=== PATIENT | male | born 1970 | race Hispanic/Latino ===

== ENCOUNTER 2020-07-30 03:57 | Emergency (ER) | payer MEDICAID, OTHER ==
[~2020-07-30] VITALS: Ht 177.8 cm; Wt 81.4 kg
[2020-07-30 06:34] LABS: BLOOD UREA NITROGEN 21 MG/DL (7-18); CALCIUM LEVEL 8.9 MG/DL (8.5-10.1); CARBON DIOXIDE LEVEL 30 MEQ/L (21-32); CHLORIDE LEVEL 104 MEQ/L (98-107); CREATININE FOR GFR 0.83 MG/DL (0.70-1.30); GLOMERULAR FILTRATION RATE > 60.0 (>56); GLUCOSE, FASTING 104 MG/DL (70-100); POTASSIUM SERUM 4.3 MEQ/L (3.5-5.1); SODIUM LEVEL 138 MEQ/L (136-145)
[2020-07-30] MEDS ORDERED: BACT800T5 PO (06:44)
[2020-07-30] MEDS ORDERED: BACTRIM 160MG/800MG DS TAB PO ONE (06:45)
[2020-07-30 07:07] VITALS: BP 132/82
== END 2020-07-30 07:08 | disposition home or self-care (01) ==
LOC: M ED 03:57
DX: L03.115 Cellulitis of right lower limb (principal); L02.415 Cutaneous abscess of right lower limb; F17.200 Nicotine dependence, unspecified, uncomplicated; F19.10 Other psychoactive substance abuse, uncomplicated

== ENCOUNTER 2020-11-28 13:59 | Emergency (ER) | payer MEDICAID ==
[~2020-11-28] VITALS: Ht 177.8 cm; Wt 80.3 kg
[~2020-11-28 13:59] MED LIST: BACT800T5 PO
[2020-11-28] MEDS ORDERED: BACT800T5 PO (14:55)
[2020-11-28] MEDS ORDERED: BACTRIM 160MG/800MG DS TAB PO ONE (15:25)
[2020-11-28 16:01] VITALS: BP 140/83
== END 2020-11-28 15:55 | disposition home or self-care (01) ==
LOC: M ED 13:59
DX: L03.113 Cellulitis of right upper limb (principal); Z86.14 Personal history of Methicillin resistant Staphylococcus aureus infection; F17.200 Nicotine dependence, unspecified, uncomplicated

== ENCOUNTER 2021-03-03 21:02 | Emergency (ER) | payer MEDICAID ==
[~2021-03-03] VITALS: Ht 177.8 cm; Wt 75.7 kg
[2021-03-03 21:52] LABS: BASO % 0.3 % (0.0-1.0); EOS % 0.2 % (0.0-3.0); HEMATOCRIT 45.1 % (42.0-52.0); LYMPH # 2.2 10^3/uL (1.5-5.0); LYMPH % 21.4 % (24.0-44.0); MEAN CORPUSCULAR HGB CONC 35.5 g/dl (32.0-36.5); MEAN CORPUSCULAR VOLUME 84.6 fl (80.0-96.0); MONO # 0.7 10^3/uL (0.0-0.8); MONO % 6.7 % (2.0-8.0); NEUTROPHILS # 7.2 10^3/uL (1.5-8.5); NEUTROPHILS % 71.2 % (36.0-66.0); PLATELET COUNT, AUTOMATED 324 10^3/uL (150-450); RED BLOOD COUNT 5.33 10^6/uL (4.30-6.10); WHITE BLOOD COUNT 10.1 10^3/uL (4.0-10.0)
[2021-03-03 22:16] LABS: AMPHETAMINES LEVEL URINE POSITIVE (NEGATIVE); BARBITURATES URINE NEGATIVE (NEGATIVE); BENZODIAZEPINES URINE NEGATIVE (NEGATIVE); CANNABINOIDS URINE NEGATIVE (NEGATIVE); COCAINE METABOLITE URINE NEGATIVE (NEGATIVE); METHADONE URINE NEGATIVE (NEGATIVE); OPIATES URINE NEGATIVE (NEGATIVE); PHENCYCLIDINE URINE NEGATIVE (NEGATIVE)
[2021-03-03 22:20] LABS: ALBUMIN 3.7 GM/DL (3.2-5.2); ALT/SGPT 41 U/L (12-78); BILIRUBIN,DIRECT 0.2 MG/DL (0.0-0.2); BILIRUBIN,TOTAL 0.7 MG/DL (0.2-1.0); BLOOD UREA NITROGEN 23 MG/DL (7-18); CALCIUM LEVEL 9.2 MG/DL (8.5-10.1); CARBON DIOXIDE LEVEL 23 MEQ/L (21-32); CHLORIDE LEVEL 105 MEQ/L (98-107); CREATININE FOR GFR 0.76 MG/DL (0.70-1.30); GLOMERULAR FILTRATION RATE > 60.0 (>56); GLUCOSE, FASTING 101 MG/DL (70-100); MAGNESIUM LEVEL 1.9 MG/DL (1.8-2.4); POTASSIUM SERUM 4.2 MEQ/L (3.5-5.1); SODIUM LEVEL 137 MEQ/L (136-145); TOTAL PROTEIN 7.1 GM/DL (6.4-8.2)
--- NOTE | 2021-03-03 22:22 | REPVR ---
PROCEDURE INFORMATION: Exam: XR Chest Exam date and time: 03/03/2021 9:17 PM Age: 51 years old Clinical indication: Other: Status epilepticus TECHNIQUE: Imaging protocol: XR of the chest. Views: 1 view. COMPARISON: No relevant prior studies available. FINDINGS: Lungs: Unremarkable. No consolidation. Pleural spaces: Unremarkable. No pleural effusion. No pneumothorax. Heart/Mediastinum: Unremarkable. No cardiomegaly. Bones/joints: Unremarkable. IMPRESSION: Negative chest. Electronically signed by: Tim Vieyra On 03/03/2021 22:22:13 PM
--- NOTE | 2021-03-03 22:22 | REPVR ---
PROCEDURE INFORMATION: Exam: CT Head Without Contrast Exam date and time: 03/03/2021 9:27 PM Age: 51 years old Clinical indication: Other: Status epilepticus TECHNIQUE: Imaging protocol: Computed tomography of the head without contrast. Radiation optimization: All CT scans at this facility use at least one of these dose optimization techniques: automated exposure control; mA and/or kV adjustment per patient size (includes targeted exams where dose is matched to clinical indication); or iterative reconstruction. COMPARISON: CT Neck with contrast 12/19/2014 5:38 PM FINDINGS: Brain: Normal. No hemorrhage. Unremarkable white matter. No mass effect. Cerebral ventricles: No ventriculomegaly. Paranasal sinuses: Visualized sinuses are unremarkable. No fluid levels. Mastoid air cells: Visualized mastoid air cells are well aerated. Bones/joints: Motion artifact at the skull base. Soft tissues: Unremarkable. IMPRESSION: Negative noncontrast head CT. Electronically signed by: Tim Vieyra On 03/03/2021 22:21:40 PM
[2021-03-03] MEDS ORDERED: D5W IV ONE (22:55)
[2021-03-03] MEDS ORDERED: VALPROATE SOD IV ONE (22:55)
[2021-03-03] MEDS ORDERED: KETOROLAC 30 MG/ML 1ML VIAL IV ONE (22:55)
--- NOTE | 2021-03-04 00:10 | REPVR ---
PROCEDURE INFORMATION: Exam: CT Lumbar Spine Without Contrast Exam date and time: 03/03/2021 11:54 PM Age: 51 years old Clinical indication: Low back pain; Additional info: Low back pain S/P seizure TECHNIQUE: Imaging protocol: Computed tomography images of the lumbar spine without contrast. Radiation optimization: All CT scans at this facility use at least one of these dose optimization techniques: automated exposure control; mA and/or kV adjustment per patient size (includes targeted exams where dose is matched to clinical indication); or iterative reconstruction. COMPARISON: No relevant prior studies available. FINDINGS: Vertebrae: Minimal levoscoliosis centered at L4. No acute compression or fracture. L1-L2: Slight interspace narrowing with early degenerative change of the facets with no spinal or foraminal stenosis. L2-L3: Minimal diffuse bulge of the disc with preservation of posterior concavity and no significant facet arthropathy. No spinal or foraminal stenosis. L3-L4: Mild interspace narrowing with endplate sclerosis and irregularity on the right. There is minimal diffuse bulge with loss of posterior concavity. There is minimal facet arthropathy, particularly on the right with borderline right neural foraminal stenosis. L4-L5: Mild interspace narrowing with minimal diffuse bulge and right posterolateral osteophytes and minimal facet arthropathy, right greater than left. There is no spinal stenosis. There is borderline right neural foraminal stenosis. L5-S1: The disc is within normal limits with minimal degenerative changes of facets with no spinal or foraminal stenosis. Kidneys and ureters: Absent left kidney. Soft tissues: Unremarkable. IMPRESSION: 1. Minimal levoscoliosis. 2. Degenerative disc changes, greatest on the right at L3-L4 and L4-L5 with borderline right neural foraminal stenosis at these 2 levels. 3. Absent left kidney. 4. Otherwise negative CT lumbar spine. No acute fracture or subluxation. Electronically signed by: Tim Vieyra On 03/04/2021 00:09:19 AM
[2021-03-04] MEDS ORDERED: DEPA1TAB3 PO (01:45)
[2021-03-04 02:32] VITALS: BP 172/88
== END 2021-03-04 02:34 | disposition home or self-care (01) ==
LOC: M ED 21:02
DX: R56.9 Unspecified convulsions (principal); F43.10 Post-traumatic stress disorder, unspecified; F31.9 Bipolar disorder, unspecified; F17.200 Nicotine dependence, unspecified, uncomplicated; M51.36 Other intervertebral disc degeneration, lumbar region; Z90.5 Acquired absence of kidney
CPT/HCPCS: 70450; 71045; 72131; 80048; 80076; 80307; 81001; 83735; 84100; 85025; 94760; 96365; 96375; 99284; J1885

== ENCOUNTER 2022-02-17 18:15 | Emergency (ER) | payer MEDICAID ==
[~2022-02-17] VITALS: Ht 177.8 cm; Wt 95.5 kg
[~2022-02-17 18:15] MED LIST changes: +DEPA1TAB3 PO
[2022-02-17] MEDS ORDERED: NS 1,000 ML IV ONE (18:25)
[2022-02-17 18:56] LABS: BASO % 0.2 % (0.0-1.0); EOS # 0.1 10^3/uL (0.0-0.5); EOS % 0.6 % (0.0-3.0); HEMATOCRIT 40.2 % (42.0-52.0); HEMOGLOBIN 13.2 g/dl (13.5-17.5); LYMPH # 0.7 10^3/uL (1.5-5.0); LYMPH % 5.7 % (24.0-44.0); MEAN CORPUSCULAR HEMOGLOBIN 30.6 pg (27.0-33.0); MEAN CORPUSCULAR HGB CONC 32.8 g/dl (32.0-36.5); MEAN CORPUSCULAR VOLUME 93.1 fl (80.0-96.0); MONO # 0.6 10^3/uL (0.0-0.8); MONO % 4.4 % (2.0-8.0); NEUTROPHILS # 11.1 10^3/uL (1.5-8.5); NEUTROPHILS % 88.6 % (36.0-66.0); PLATELET COUNT, AUTOMATED 284 10^3/uL (150-450); RED BLOOD COUNT 4.32 10^6/uL (4.30-6.10); WHITE BLOOD COUNT 12.5 10^3/uL (4.0-10.0)
[2022-02-17 19:24] LABS: ACETAMINOPHEN LEVEL < 2.0 UG/ML (10.0-30.0); ALBUMIN 3.9 GM/DL (3.2-5.2); ALT/SGPT 34 U/L (12-78); BILIRUBIN,DIRECT 0.2 MG/DL (0.0-0.2); BILIRUBIN,TOTAL 0.8 MG/DL (0.2-1.0); BLOOD UREA NITROGEN 20 MG/DL (7-18); CALCIUM LEVEL 8.8 MG/DL (8.5-10.1); CARBON DIOXIDE LEVEL 28 MEQ/L (21-32); CHLORIDE LEVEL 104 MEQ/L (98-107); CREATININE FOR GFR 1.17 MG/DL (0.70-1.30); ETHYL ALCOHOL (ETHANOL) < 0.003 % (0.000-0.010); GLOMERULAR FILTRATION RATE > 60.0 (>56); GLUCOSE, FASTING 147 MG/DL (70-100); POTASSIUM SERUM 4.3 MEQ/L (3.5-5.1); SALICYLATE LEVEL 2.4 MG/DL (5.0-30.0); SODIUM LEVEL 137 MEQ/L (136-145); TOTAL PROTEIN 6.8 GM/DL (6.4-8.2)
[2022-02-17 20:38] LABS: AMPHETAMINES LEVEL URINE NEGATIVE (NEGATIVE); BARBITURATES URINE NEGATIVE (NEGATIVE); BENZODIAZEPINES URINE NEGATIVE (NEGATIVE); CANNABINOIDS URINE POSITIVE (NEGATIVE); COCAINE METABOLITE URINE POSITIVE (NEGATIVE); METHADONE URINE NEGATIVE (NEGATIVE); OPIATES URINE POSITIVE (NEGATIVE); PHENCYCLIDINE URINE NEGATIVE (NEGATIVE)
[2022-02-17 21:29] VITALS: BP 138/75
== END 2022-02-17 21:45 | disposition home or self-care (01) ==
LOC: M ED 18:15 → EDBD 18:15 → M ED 21:45
DX: T40.1X1A Poisoning by heroin, accidental (unintentional), initial encounter (principal); R00.0 Tachycardia, unspecified; I45.10 Unspecified right bundle-branch block; F17.200 Nicotine dependence, unspecified, uncomplicated; J01.00 Acute maxillary sinusitis, unspecified; J01.20 Acute ethmoidal sinusitis, unspecified; Z79.899 Other long term (current) drug therapy

== ENCOUNTER 2022-04-06 10:53 | Emergency (ER) | payer MEDICAID, OTHER ==
[~2022-04-06] VITALS: Ht 177.8 cm; Wt 77.3 kg
[2022-04-06] MEDS ORDERED: ACETAMINOPHEN 325 MG TAB PO ONE (11:30)
[2022-04-06] MEDS ORDERED: BACITRACIN OINTMENT 30GM TUBE TOP STA (12:22)
[2022-04-06 13:12] VITALS: BP 162/91
== END 2022-04-06 13:20 | disposition home or self-care (01) ==
LOC: M ED 10:53
DX: S43.51XA Sprain of right acromioclavicular joint, initial encounter (principal); S50.811A Abrasion of right forearm, initial encounter; W19.XXXA Unspecified fall, initial encounter; F43.10 Post-traumatic stress disorder, unspecified; F31.9 Bipolar disorder, unspecified; Z79.899 Other long term (current) drug therapy

== ENCOUNTER → 2022-04-18 | Outpatient (CLI) | payer OTHER | LOC: M SOG 14:06 | PROVIDERS: ATTEND Orthopaedic Surgery | DX: M54.2 Cervicalgia (principal); M25.511 Pain in right shoulder; M47.812 Spondylosis without myelopathy or radiculopathy, cervical region; M19.011 Primary osteoarthritis, right shoulder ==

== ENCOUNTER 2023-02-06 03:20 | Emergency (ER) | payer OTHER ==
[~2023-02-06] VITALS: Ht 177.8 cm; Wt 73.9 kg
[2023-02-06 03:21] VITALS: BP 165/92; TEMP 96.8; O2SAT 98
== END 2023-02-06 05:42 | disposition left against medical advice (07) ==
LOC: M ED 03:20
DX: Z53.21 Procedure and treatment not carried out due to patient leaving prior to being seen by health care provider (principal)

== ENCOUNTER 2023-02-18 22:04 | Inpatient (IN) | payer OTHER ==
[~2023-02-18] VITALS: Ht 177.8 cm; Wt 60.9 kg
[2023-02-18 23:02] LABS: BASO # 0.1 10^3/uL (0.0-0.2); BASO % 0.3 % (0.0-1.0); EOS % 0.1 % (0.0-3.0); HEMATOCRIT 35.3 % (42.0-52.0); LYMPH # 0.8 10^3/uL (1.5-5.0); LYMPH % 5.3 % (24.0-44.0); MEAN CORPUSCULAR HEMOGLOBIN 30.9 pg (27.0-33.0); MONO # 1.2 10^3/uL (0.0-0.8); MONO % 7.9 % (2.0-8.0); NEUTROPHILS # 12.6 10^3/uL (1.5-8.5); NEUTROPHILS % 85.7 % (36.0-66.0); PLATELET COUNT, AUTOMATED 274 10^3/uL (150-450); RED BLOOD COUNT 3.88 10^6/uL (4.30-6.10); WHITE BLOOD COUNT 14.6 10^3/uL (4.0-10.0)
[2023-02-18 23:20] LABS: BLOOD UREA NITROGEN 21 MG/DL (9-23); CARBON DIOXIDE LEVEL 28 MMOL/L (20-31); CHLORIDE LEVEL 98 MMOL/L (98-107); CREATININE FOR GFR 0.82 MG/DL (0.70-1.30); GLOMERULAR FILTRATION RATE > 60.0 (>56); GLUCOSE, FASTING 106 MG/DL (60-100); POTASSIUM SERUM 3.8 MMOL/L (3.5-5.1); SODIUM LEVEL 133 MMOL/L (136-145)
[2023-02-18 23:23] LABS: ERYTHROCYTE SEDIMENTATION RATE 80 mm/hr (0-20)
[2023-02-19] MEDS ORDERED: PIPERACILLIN/TAZOBACTAM SOD 4.5 GM in D5W MINI-BAG PLUS 50 ML IV ONE (00:15)
[2023-02-19] MEDS ORDERED: NS 1,000 ML IV ONE (00:15)
[2023-02-19] MEDS ORDERED: ACETAMINOPHEN TAB 650MG DOSE (2X325MG) PO ONE (00:15)
[2023-02-19 01:22] LABS: AMPHETAMINES LEVEL URINE NEGATIVE (NEGATIVE); BARBITURATES URINE NEGATIVE (NEGATIVE); COCAINE METABOLITE URINE NEGATIVE (NEGATIVE)
[2023-02-19 01:23] LABS: BENZODIAZEPINES URINE NEGATIVE (NEGATIVE); CANNABINOIDS URINE NEGATIVE (NEGATIVE); METHADONE URINE NEGATIVE (NEGATIVE); OPIATES URINE NEGATIVE (NEGATIVE); PHENCYCLIDINE URINE NEGATIVE (NEGATIVE)
[2023-02-19] MEDS ORDERED: NS 1,000 ML IV SCH (05:10)
[2023-02-19] MEDS ORDERED: ACETAMINOPHEN TAB 650MG DOSE (2X325MG) PO PRN (05:10)
[2023-02-19] MEDS ORDERED: ONDANSETRON 4MG 2ML VIAL IV PRN (05:10)
[2023-02-19] MEDS ORDERED: HOME MED LIST COMPLETE! XX SCH (05:50)
[2023-02-19] MEDS ORDERED: NICOTINE 14 MG/24 HR TRANSDERMAL TD PRN (06:00)
[2023-02-19] MEDS: KETOROLAC 30 MG/ML 1ML VIAL IV PRN ×2 (06:16→22:12)
[2023-02-19] MEDS: VANCOMYCIN HCL 1,000 MG, VIAL MATE ADAPTER 1 EACH in D5W 250 ML IV SCH ×3 (06:18→22:12)
[2023-02-19] MEDS ORDERED: ACETAMINOPHEN 500 MG TAB PO PRN (07:00)
[2023-02-19] MEDS ORDERED: VANCOMYCIN HCL 500 MG in D5W MINI-BAG PLUS 100 ML IV ONE (07:00)
[2023-02-19] MEDS ORDERED: KETOROLAC 30 MG/ML 1ML VIAL IV PRN (07:00)
[2023-02-19 07:01] LABS: BLOOD UREA NITROGEN 16 MG/DL (9-23); CALCIUM LEVEL 8.6 MG/DL (8.5-10.1); CARBON DIOXIDE LEVEL 24 MMOL/L (20-31); CHLORIDE LEVEL 104 MMOL/L (98-107); GLOMERULAR FILTRATION RATE > 60.0 (>56); GLUCOSE, FASTING 112 MG/DL (60-100); POTASSIUM SERUM 3.8 MMOL/L (3.5-5.1); SODIUM LEVEL 137 MMOL/L (136-145)
[2023-02-19 07:04] LABS: BASO % 0.3 % (0.0-1.0); EOS % 0.2 % (0.0-3.0); HEMATOCRIT 36.1 % (42.0-52.0); HEMOGLOBIN 12.1 g/dl (13.5-17.5); LYMPH # 0.8 10^3/uL (1.5-5.0); MEAN CORPUSCULAR HEMOGLOBIN 30.3 pg (27.0-33.0); MEAN CORPUSCULAR HGB CONC 33.5 g/dl (32.0-36.5); MEAN CORPUSCULAR VOLUME 90.3 fl (80.0-96.0); MONO # 1.2 10^3/uL (0.0-0.8); MONO % 8.1 % (2.0-8.0); NEUTROPHILS # 12.9 10^3/uL (1.5-8.5); NEUTROPHILS % 85.5 % (36.0-66.0); PLATELET COUNT, AUTOMATED 286 10^3/uL (150-450); WHITE BLOOD COUNT 15.1 10^3/uL (4.0-10.0)
[2023-02-19] MEDS ORDERED: ENOXAPARIN 40MG/0.4ML SYRINGE (J1650 PER 10MG) SC SCH (09:00)
[2023-02-19 11:45] VITALS: BP 104/69; TEMP 97; O2SAT 92
[2023-02-19 12:11] VITALS: BP 150/72
[2023-02-19] MEDS: METHADONE 10MG TAB PO SCH (12:51)
[2023-02-19] MEDS: carisoprodoL 350 MG TAB PO PRN ×2 (12:52→12:54)
[2023-02-19] MEDS: cloNIDine 0.1MG TABLET PO SCH (12:52)
[2023-02-19 14:00] VITALS: BP 138/70; TEMP 97.5; O2SAT 96
[2023-02-19] MEDS ORDERED: cloNIDine 0.1MG TABLET PO ONE (15:00)
[2023-02-19] MEDS: RIVAROXABAN 10MG TAB (XARELTO) PO SCH (20:04)
[2023-02-19 21:39] VITALS: BP 130/83; TEMP 97.5; O2SAT 100
[2023-02-20 05:23] LABS: BASO % 0.2 % (0.0-1.0); EOS % 0.2 % (0.0-3.0); HEMATOCRIT 35.9 % (42.0-52.0); LYMPH # 0.8 10^3/uL (1.5-5.0); LYMPH % 6.1 % (24.0-44.0); MEAN CORPUSCULAR HEMOGLOBIN 30.2 pg (27.0-33.0); MEAN CORPUSCULAR HGB CONC 33.4 g/dl (32.0-36.5); MEAN CORPUSCULAR VOLUME 90.4 fl (80.0-96.0); MONO # 0.6 10^3/uL (0.0-0.8); MONO % 4.9 % (2.0-8.0); NEUTROPHILS # 11.4 10^3/uL (1.5-8.5); NEUTROPHILS % 87.9 % (36.0-66.0); PLATELET COUNT, AUTOMATED 329 10^3/uL (150-450); RED BLOOD COUNT 3.97 10^6/uL (4.30-6.10)
[2023-02-20 05:48] LABS: BLOOD UREA NITROGEN 14 MG/DL (9-23); CALCIUM LEVEL 7.8 MG/DL (8.5-10.1); CARBON DIOXIDE LEVEL 29 MMOL/L (20-31); CHLORIDE LEVEL 104 MMOL/L (98-107); CREATININE FOR GFR 0.65 MG/DL (0.70-1.30); GLOMERULAR FILTRATION RATE > 60.0 (>56); GLUCOSE, FASTING 113 MG/DL (60-100); POTASSIUM SERUM 3.9 MMOL/L (3.5-5.1); SODIUM LEVEL 138 MMOL/L (136-145)
[2023-02-20 06:00] VITALS: BP 141/85; TEMP 97.8; O2SAT 98
[2023-02-20] MEDS: VANCOMYCIN HCL 1,000 MG, VIAL MATE ADAPTER 1 EACH in D5W 250 ML IV SCH ×3 (06:23→21:21)
[2023-02-20] MEDS: KETOROLAC 30 MG/ML 1ML VIAL IV PRN ×2 (06:23→19:55)
[2023-02-20] MEDS: VANCOMYCIN HCL 500 MG in D5W MINI-BAG PLUS 100 ML IV SCH ×3 (08:16→22:33)
[2023-02-20] MEDS: METHADONE 10MG TAB PO SCH (08:16)
[2023-02-20] MEDS: cloNIDine 0.1MG TABLET PO SCH (08:17)
[2023-02-20] MEDS ORDERED: METHADONE 10MG TAB PO ONE (11:00)
[2023-02-20] MEDS ORDERED: cloNIDine 0.2 MG TAB PO ONE (11:00)
[2023-02-20 14:08] LABS: VANCOMYCIN LEVEL TROUGH 14.9 UG/ML (10.0-20.0)
[2023-02-20 16:13] VITALS: BP 118/72
[2023-02-20 16:37] LABS: ALBUMIN 2.3 G/DL (3.2-5.2); BILIRUBIN,DIRECT 0.2 MG/DL (<0.4); BILIRUBIN,TOTAL 0.4 MG/DL (0.3-1.2); TOTAL PROTEIN 5.3 G/DL (5.7-8.2)
[2023-02-20] MEDS: RIVAROXABAN 10MG TAB (XARELTO) PO SCH (17:32)
[2023-02-20 21:00] VITALS: BP 115/73; TEMP 97.3; O2SAT 98
[2023-02-20] MEDS: carisoprodoL 350 MG TAB PO PRN (21:17)
[2023-02-21 05:25] LABS: BASO % 0.4 % (0.0-1.0); EOS # 0.1 10^3/uL (0.0-0.5); EOS % 0.6 % (0.0-3.0); HEMATOCRIT 36.9 % (42.0-52.0); HEMOGLOBIN 12.4 g/dl (13.5-17.5); LYMPH # 1.1 10^3/uL (1.5-5.0); MEAN CORPUSCULAR HEMOGLOBIN 30.5 pg (27.0-33.0); MEAN CORPUSCULAR HGB CONC 33.6 g/dl (32.0-36.5); MEAN CORPUSCULAR VOLUME 90.9 fl (80.0-96.0); MONO # 0.6 10^3/uL (0.0-0.8); MONO % 5.1 % (2.0-8.0); NEUTROPHILS % 83.1 % (36.0-66.0); PLATELET COUNT, AUTOMATED 394 10^3/uL (150-450); RED BLOOD COUNT 4.06 10^6/uL (4.30-6.10); WHITE BLOOD COUNT 10.9 10^3/uL (4.0-10.0)
[2023-02-21] MEDS: KETOROLAC 30 MG/ML 1ML VIAL IV PRN (05:31)
[2023-02-21] MEDS: VANCOMYCIN HCL 1,000 MG, VIAL MATE ADAPTER 1 EACH in D5W 250 ML IV SCH (05:31)
[2023-02-21 05:35] VITALS: BP 116/74; TEMP 97.5; O2SAT 100
[2023-02-21 05:40] LABS: ERYTHROCYTE SEDIMENTATION RATE 57 mm/hr (0-20)
[2023-02-21 05:51] LABS: BLOOD UREA NITROGEN 17 MG/DL (9-23); CALCIUM LEVEL 8.2 MG/DL (8.5-10.1); CARBON DIOXIDE LEVEL 28 MMOL/L (20-31); CHLORIDE LEVEL 105 MMOL/L (98-107); GLOMERULAR FILTRATION RATE > 60.0 (>56); GLUCOSE, FASTING 121 MG/DL (60-100); POTASSIUM SERUM 4.1 MMOL/L (3.5-5.1); SODIUM LEVEL 138 MMOL/L (136-145)
[2023-02-21] MEDS: VANCOMYCIN HCL 500 MG in D5W MINI-BAG PLUS 100 ML IV SCH (06:45)
[2023-02-21] MEDS: METHADONE 10MG TAB PO SCH (08:32)
[2023-02-21 08:34] VITALS: BP 154/89
[2023-02-21] MEDS: cloNIDine 0.1MG TABLET PO SCH (08:34)
[2023-02-21] MEDS ORDERED: SENNA 8.6 MG TAB (SENOKOT) PO PRN (09:20)
[2023-02-21] MEDS ORDERED: MIRALAX *UNIT DOSE* 17GM PACKET PO PRN (09:20)
[2023-02-21] MEDS ORDERED: MOM 30ML SUSPENSION UDC PO PRN (09:20)
[2023-02-21] MEDS: METAMUCIL (PSYLLIUM) PACKET PO SCH ×2 (11:12→20:49)
[2023-02-21] MEDS: MIRALAX *UNIT DOSE* 17GM PACKET PO SCH (11:40)
[2023-02-21 14:00] VITALS: BP 101/59; TEMP 97.7; O2SAT 98
[2023-02-21] MEDS ORDERED: VANCOMYCIN HCL 750 MG, VIAL MATE ADAPTER 1 EACH in D5W 250 ML IV SCH (14:00)
[2023-02-21] MEDS: ceFAZolin SOD 1 GM in D5W MINI-BAG PLUS 50 ML IV SCH ×2 (14:58→21:03)
[2023-02-21] MEDS ORDERED: VANCOMYCIN HCL 500 MG in D5W MINI-BAG PLUS 100 ML IV SCH (15:00)
[2023-02-21] MEDS: RIVAROXABAN 10MG TAB (XARELTO) PO SCH (18:10)
[2023-02-21 20:00] VITALS: BP 104/57; TEMP 97.9; O2SAT 97
[2023-02-21] MEDS: IPRATROPIUM 0.5MG/ALBUTEROL 2.5MG INH SOL UD 3ML (DUONEB) NEB SCH (20:00)
[2023-02-22] MEDS: IPRATROPIUM 0.5MG/ALBUTEROL 2.5MG INH SOL UD 3ML (DUONEB) NEB SCH ×4 (01:29→19:43)
[2023-02-22] MEDS: ceFAZolin SOD 1 GM in D5W MINI-BAG PLUS 50 ML IV SCH ×3 (05:40→21:28)
[2023-02-22 06:00] VITALS: BP 141/82; TEMP 97.7; O2SAT 98
[2023-02-22 06:32] LABS: BASO # 0.1 10^3/uL (0.0-0.2); BASO % 0.7 % (0.0-1.0); EOS # 0.1 10^3/uL (0.0-0.5); EOS % 1.3 % (0.0-3.0); HEMATOCRIT 38.2 % (42.0-52.0); HEMOGLOBIN 12.4 g/dl (13.5-17.5); LYMPH # 1.6 10^3/uL (1.5-5.0); LYMPH % 17.1 % (24.0-44.0); MEAN CORPUSCULAR HEMOGLOBIN 30.2 pg (27.0-33.0); MEAN CORPUSCULAR HGB CONC 32.5 g/dl (32.0-36.5); MEAN CORPUSCULAR VOLUME 93.2 fl (80.0-96.0); MONO # 0.5 10^3/uL (0.0-0.8); MONO % 5.5 % (2.0-8.0); NEUTROPHILS # 6.9 10^3/uL (1.5-8.5); NEUTROPHILS % 73.9 % (36.0-66.0); PLATELET COUNT, AUTOMATED 439 10^3/uL (150-450); WHITE BLOOD COUNT 9.4 10^3/uL (4.0-10.0)
[2023-02-22 06:58] LABS: ERYTHROCYTE SEDIMENTATION RATE 55 mm/hr (0-20)
[2023-02-22 07:19] LABS: BLOOD UREA NITROGEN 16 MG/DL (9-23); CALCIUM LEVEL 8.1 MG/DL (8.5-10.1); CARBON DIOXIDE LEVEL 26 MMOL/L (20-31); CHLORIDE LEVEL 103 MMOL/L (98-107); CREATININE FOR GFR 0.78 MG/DL (0.70-1.30); GLOMERULAR FILTRATION RATE > 60.0 (>56); GLUCOSE, FASTING 89 MG/DL (60-100); POTASSIUM SERUM 5.2 MMOL/L (3.5-5.1); SODIUM LEVEL 138 MMOL/L (136-145)
[2023-02-22] MEDS ORDERED: LACTULOSE 20GM/30ML SYRUP UDC PO SCH (09:00)
[2023-02-22] MEDS ORDERED: GABAPENTIN 300 MG CAP PO SCH (09:00)
[2023-02-22 09:36] VITALS: BP 139/74
[2023-02-22] MEDS: METAMUCIL (PSYLLIUM) PACKET PO SCH ×2 (09:37→21:00)
[2023-02-22] MEDS: METHADONE 10MG TAB PO SCH (09:37)
[2023-02-22] MEDS: cloNIDine 0.1MG TABLET PO SCH (09:37)
[2023-02-22] MEDS: MIRALAX *UNIT DOSE* 17GM PACKET PO SCH (09:38)
[2023-02-22] MEDS: predniSONE 20 MG TAB PO SCH (12:10)
[2023-02-22 14:00] VITALS: BP 100/54; TEMP 97.7; O2SAT 97
[2023-02-22] MEDS: RIVAROXABAN 10MG TAB (XARELTO) PO SCH (18:57)
[2023-02-22] MEDS: ADVAIR HFA 115/21MCG INHALER INH SCH (19:43)
[2023-02-22 20:51] VITALS: BP 113/55; TEMP 97.7; O2SAT 95
[2023-02-23] MEDS: IPRATROPIUM 0.5MG/ALBUTEROL 2.5MG INH SOL UD 3ML (DUONEB) NEB SCH ×2 (02:10→08:01)
[2023-02-23] MEDS: ceFAZolin SOD 1 GM in D5W MINI-BAG PLUS 50 ML IV SCH (05:15)
[2023-02-23 06:00] VITALS: BP 128/74; TEMP 97.9; O2SAT 99
[2023-02-23 07:10] LABS: BASO # 0.1 10^3/uL (0.0-0.2); BASO % 0.4 % (0.0-1.0); EOS % 0.2 % (0.0-3.0); HEMATOCRIT 38.5 % (42.0-52.0); HEMOGLOBIN 12.5 g/dl (13.5-17.5); LYMPH # 1.8 10^3/uL (1.5-5.0); LYMPH % 14.5 % (24.0-44.0); MEAN CORPUSCULAR HEMOGLOBIN 30.5 pg (27.0-33.0); MEAN CORPUSCULAR HGB CONC 32.5 g/dl (32.0-36.5); MEAN CORPUSCULAR VOLUME 93.9 fl (80.0-96.0); MONO # 0.5 10^3/uL (0.0-0.8); MONO % 4.1 % (2.0-8.0); NEUTROPHILS # 9.8 10^3/uL (1.5-8.5); NEUTROPHILS % 79.3 % (36.0-66.0); PLATELET COUNT, AUTOMATED 475 10^3/uL (150-450); WHITE BLOOD COUNT 12.3 10^3/uL (4.0-10.0)
[2023-02-23 07:26] LABS: BLOOD UREA NITROGEN 17 MG/DL (9-23); CALCIUM LEVEL 8.3 MG/DL (8.5-10.1); CARBON DIOXIDE LEVEL 26 MMOL/L (20-31); CHLORIDE LEVEL 105 MMOL/L (98-107); CREATININE FOR GFR 0.73 MG/DL (0.70-1.30); GLOMERULAR FILTRATION RATE > 60.0 (>56); GLUCOSE, FASTING 113 MG/DL (60-100); POTASSIUM SERUM 4.2 MMOL/L (3.5-5.1); SODIUM LEVEL 141 MMOL/L (136-145)
[2023-02-23 07:28] LABS: ERYTHROCYTE SEDIMENTATION RATE 45 mm/hr (0-20)
[2023-02-23] MEDS: ADVAIR HFA 115/21MCG INHALER INH SCH (08:01)
[2023-02-23] MEDS ORDERED: IPRA0.00 NEB (08:28)
[2023-02-23] MEDS ORDERED: DALV1SOL IV (08:28)
[2023-02-23] MEDS ORDERED: SENN-188 PO (08:28)
[2023-02-23] MEDS ORDERED: GABA-282 PO (08:28)
[2023-02-23] MEDS ORDERED: ACET-683 PO (08:28)
[2023-02-23] MEDS ORDERED: NICO14PA TD (08:28)
[2023-02-23] MEDS ORDERED: ADVA115A INH (08:28)
[2023-02-23] MEDS ORDERED: METH-1177 PO (08:28)
[2023-02-23] MEDS ORDERED: META1POW PO (08:28)
[2023-02-23] MEDS ORDERED: CLONI1TA PO (08:28)
[2023-02-23] MEDS ORDERED: PRED20TA PO (08:28)
[2023-02-23] MEDS ORDERED: MIRA3350 PO (08:28)
[2023-02-23] MEDS ORDERED: IBUP-1022 PO (08:30)
[2023-02-23] MEDS: METAMUCIL (PSYLLIUM) PACKET PO SCH (09:00)
[2023-02-23] MEDS ORDERED: GABAPENTIN 300 MG CAP PO SCH (09:00)
[2023-02-23] MEDS: MIRALAX *UNIT DOSE* 17GM PACKET PO SCH (09:00)
[2023-02-23] MEDS: METHADONE 10MG TAB PO SCH (09:50)
[2023-02-23] MEDS: predniSONE 20 MG TAB PO SCH (09:50)
[2023-02-23] MEDS: cloNIDine 0.1MG TABLET PO SCH (09:50)
[2023-02-23 09:52] VITALS: BP 148/70
== END 2023-02-23 10:52 | DRG 383 ==
LOC: M ED 22:04 → M ED INP 02-19 05:09 → ENRESERV 02-19 10:44 → M MSPAV 02-19 11:38
PROVIDERS: ADMIT Internal Medicine; ATTEND Student in an Organized Health Care Education/Training Program
DX: L03.115 Cellulitis of right lower limb (principal); J44.1 Chronic obstructive pulmonary disease with (acute) exacerbation; F43.10 Post-traumatic stress disorder, unspecified; F31.9 Bipolar disorder, unspecified; F17.210 Nicotine dependence, cigarettes, uncomplicated; Z71.6 Tobacco abuse counseling; K42.9 Umbilical hernia without obstruction or gangrene; R30.0 Dysuria; K59.00 Constipation, unspecified; M79.2 Neuralgia and neuritis, unspecified; F11.13 Opioid abuse with withdrawal; Z20.822 Contact with and (suspected) exposure to COVID-19; Z79.899 Other long term (current) drug therapy

== ENCOUNTER 2023-02-23 10:53 | Outpatient (CLI) | payer OTHER ==
[~2023-02-23] VITALS: Ht 172.7 cm; Wt 60.9 kg
[~2023-02-23 10:53] MED LIST changes: +ACET-683 PO; +ADVA115A INH; +CLONI1TA PO; +DALV1SOL IV; +GABA-282 PO; +IBUP-1022 PO; +IPRA0.00 NEB; +META1POW PO; +METH-1177 PO; +MIRA3350 PO; +NICO14PA TD; +PRED20TA PO; +SENN-188 PO
[2023-02-23] MEDS ORDERED: DALBAVANCIN 1,500 MG in D5W 250 ML IV ONE (13:00)
== END 2023-02-23 14:14 | disposition home or self-care (01) ==
LOC: M INFU 10:53 → M MSPAV 10:53 → M INFU 14:14
PROVIDERS: ATTEND Student in an Organized Health Care Education/Training Program
DX: L03.115 Cellulitis of right lower limb (principal)
CPT/HCPCS: 96365; 97161; J0875